=== PATIENT | female | born 1935 | race Caucasian/White ===

== ENCOUNTER 2019-08-03 10:07 | Outpatient (CLI) | payer MEDICARE ==
--- NOTE | 2019-08-03 11:17 | CT ---
EXAM: CT brain without contrast HISTORY: Dizziness and headache. COMMUNITY FUNDRAISER shunt. COMPARISON: 09/21/2012 TECHNIQUE: Multiple contiguous axial images were obtained and a CT of the brain without contrast. FINDINGS: There are scattered hypodensities in the subcortical and periventricular white matter consi stent with small vessel ischemic disease. A right-sided COMMUNITY FUNDRAISER shunt is seen with its tip in the lateral ventricle. Mild prominence the lateral ventricles is seen. This is is less prominent than on the prior exam. There is no evidence of intracranial hemorrhage or extra-axial fluid collection. The calvarium and overlying soft tissues are unremarkable. The visualized paranasal sinuses and masto id air cells are well aerated. IMPRESSION: 1. Small vessel ischemic disease 2. Mild prominence of the lateral ventricles. This prominence is less pronounced than on the prior ex am.
--- NOTE | 2019-08-03 11:21 | RAD ---
EXAM: Shuntogram. HISTORY: METAL MODEL BUILDER shunt COMPARISON: None FINDINGS: Images of the skull, neck, chest, and abdomen were performed. A METAL MODEL BUILDER shunt is seen and appear s intact. The tip of the shunt is seen in the right upper quadrant of the abdomen. IMPRESSION: No shunt abnormality identified.
== END 2019-08-03 10:08 | disposition home or self-care (01) ==
LOC: CT 10:07
PROVIDERS: ATTEND Surgery
DX: T85.618A Breakdown (mechanical) of other specified internal prosthetic devices, implants and grafts, initial encounter (principal); R42 Dizziness and giddiness; R51 Headache; I67.82 Cerebral ischemia
CPT/HCPCS: 70450; 75809

== ENCOUNTER 2019-08-06 12:53 | Inpatient (IN) | payer MEDICARE, OTHER ==
[~2019-08-06 12:53] MED LIST: Iopamidol-370 76% 500 ML 1 ML ONE
[2019-08-06 13:38] LABS: #Basophils 0.1 thou/uL (0.0-0.2); #Eosinphils 0.1 thou/uL (0.0-0.7); #Lymphocytes 1.2 thou/uL (1.20-3.40); #Monocytes 0.3 thou/uL (0.11-0.59); #Neutrophils 3.4 thou/uL (1.40-6.50); %Basophils 1.1 % (0.0-1.0); %Eosinophils 1.6 % (0.0-10.0); %Lymphocytes 24.5 % (21.0-51.0); %Monocytes 5.6 % (0.0-10.0); %Neutrophils 67.2 % (42.0-75.0); Hemoglobin 12.3 g/dL (12.0-16.0); Mean Corpuscular HGB CONC 32.6 g/dL (32.0-36.0); Mean Corpuscular Hemoglobin 30.3 pg (27.0-31.0); Mean Corpuscular Volume 92.7 fL (78.0-98.0); Platelet Count 206 thou/uL (130-400); RBC Distribution Width 12.9 % (11.5-14.5); Red Blood Cell (RBC) Count 4.08 mill/uL (4.20-5.40)
[2019-08-06 13:44] LABS: PTT 36.3 SEC (22.9-36.1)
[2019-08-06 14:03] LABS: ALT (SGPT) 8 U/L (8-55); AST (SGOT) 15 U/L (5-34); Albumin 4.2 g/dL (3.4-4.8); Alkaline Phosphatase 96 U/L (40-110); Anion Gap 11 mmol/L (10-20); BUN (Urea Nitrogen) 14 mg/dL (9.8-20.1); Bilirubin, Total 0.2 mg/dL (0.2-1.2); CRP (Inflammatory) Less than 0.50 mg/dL (= or < 0.5); Calc. Creatinine Clearance 0 mL/min (70-130); Calcium 9.1 mg/dL (7.8-10.44); Carbon Dioxide 27 mmol/L (23-31); Chloride 107 mmol/L (98-107); Estimated GFR-MDRD 51; Globulin 2.8 g/dL (2.4-3.5); Glucose 102 mg/dL (83-110); Potassium 3.7 mmol/L (3.5-5.1); Sodium 141 mmol/L (136-145)
[2019-08-06] MEDS ORDERED: Ondansetron PF 4 MG/2 ML Vial IVP PRN (15:07)
--- NOTE | 2019-08-06 15:22 | CT ---
CT OF THE CHEST, ABDOMEN AND PELVIS WITH AND WITHOUT IV CONTRAST INDICATION: 83-year-old female with shunt malfunction COMPARISON: Shunt series radiographs dated August 03, [address] the brain dated August 03, 2019 . FINDINGS: CHEST: Lungs: There is a 2 mm groundglass nodule within the right upper lobe on image 30 of series 4. There is mild pleural parenchymal scarring involving both lung apices. There is a 2 mm noncalcified pulmonary nodule right middle lobe. There is a calcified granuloma in the left upper lobe. No airspac e consolidation is evident. Pleural space: No effusion. Mediastinum: There are coronary arteries and thoracic aorta consultations. No pathologically enlarged lymph nodes are evident. There are calcified lymph nodes within the mediastinum and left hilar region. Axilla: No pathologically enlarged lymph nodes are evident. ABDOMEN: Liver: There is a 1.5 cm cyst within the right hepatic dome. Gallbladder: Normal appearing. Pancreas: Normal. Adrenal glands: Normal. Spleen: Calcified granuloma Kidneys and ureters: Normal. No hydronephrosis. Vasculature: Moderate vascular Lymph nodes:No lymphadenopathy. Free fluid in abdomen:No free fluid is evident. PELVIS: Small and large bowel: Normal Appendix:Normal Bladder: Decompressed with a Galloway catheter Rectal and perirectal soft tissues:Normal. Reproductive structures: Surgically absent Free fluid in pelvis: No free fluid is evident. Lymphadenopathy pelvis: No lymphadenopathy is evident. Osseous structures: There is diffuse osteopenia. There are percutaneous pins traversing a healed left femoral neck fracture. There is thoracolumbar scoliosis. There is an ACDF involving C7-T1. No acute fracture or subluxation demonstrated. There is scattered degenerative and osteoarthritic live es. Soft tissues:The shunt catheter traverses the anterior aspect of the right hemithorax without evidenc e of disruption. The catheter enters the peritoneal cavity within the right upper quadrant of the abdomen and projects cephalad over the right hepatic dome and terminates along the lateral aspect of the right hepatic lobe. No large CSF fluid collection is grossly evident. IMPRESSION: 1. Intact visualized portions of the ventriculoperitoneal catheter. 2. Chronic findings as above
[2019-08-06] MEDS ORDERED: hydrALAZINE 20 MG/ML VIAL SLOW IVP PRN ×2 (16:24→16:46)
--- NOTE | 2019-08-06 16:48 | PDOC.HHP ---
Hospitalist HPI - History of Present Illness Dizziness History of Present Illness: 83 YO F with a PMH of HTN, DJD and CASHIER GREETER shunt placed over 10 years ago who was admitted via the ER due to the recommendation of her NeuroSx. Pt had apparently been having dizziness over a month. Dizziness was worse in the mornings but occurred all day. There was no known relieving or worsening factors. Pt also began to run into the wall and had a few falls but no sequelae. She then began having nausea and vomiting which got worse. She denied fever, chills, diarrhea, chest pain, SOB, numbness, tingling or urinary symps. She then went to see the NeuroSx who felt she was having a malfunction of her CASHIER GREETER shunt and recommended her to be admitted. Hospitalist team was consulted to assist with med mgt. Currently, pt has no new complaints. Hospitalist ROS - Review of Systems Constitutional: denies: fever, chills, sweats, weakness, malaise, other Eyes: denies: pain, vision change, conjunctivae inflammation, eyelid inflammation, redness, other ENT: denies: ear pain, ear discharge, nose pain, nose discharge, nose congestion , mouth pain, mouth swelling, throat pain, throat swelling, other Respiratory: denies: cough, dry, shortness of breath, hemoptysis, SOB with excertion, pleuritic pain, sputum, wheezing, other Cardiovascular: denies: chest pain, palpitations, orthopnea, paroxysmal noc. dyspnea, edema, light headedness, other Gastrointestinal: reports: nausea, vomiting. denies: abdominal pain, diarrhea, constipation, melena, hematochezia, other Genitourinary: denies: dysuria, frequency, incontinence, hematuria, retention, other Musculoskeletal: denies: neck pain, shoulder pain, arm pain, back pain, hand pain, leg pain, foot pain, other Neurological: reports: weakness, incoordination, other (dizziness) Hospitalist History - Past Medical History Cardiac: reports: HTN - Exam General Appearance: NAD, awake alert Eye: PERRL, anicteric sclera ENT: normocephalic atraumatic, no oropharyngeal lesions, moist mucosa Neck: supple, symmetric, no JVD, no thyromegaly, no lymphadenopathy, no carotid bruit Heart: RRR, no murmur, no gallops, no rubs, normal peripheral pulses Respiratory: CTAB, no wheezes, no rales, no ronchi, normal chest expansion, no tachypnea, normal percussion Gastrointestinal: soft, non-tender, non-distended, normal bowel sounds, no palpable masses, no hepatomegaly, no splenomegaly, no bruit Extremities: no cyanosis, no clubbing, no edema Skin: normal turgor, no lesions, no rashes Neurological: cranial nerve grossly intact, no focal deficits, no new deficit, speech deficit Musculoskeletal: normal tone, normal strength, no muscle wasting Psychiatric: normal affect, normal behavior, A&O x 3 Hospitalist Results - Labs Result Diagrams: 08/06/19 13:21 08/06/19 13:21 Lab results: WBC 5.0 thou/uL (4.8-10.8) 08/06/19 13:21 Hgb 12.3 g/dL (12.0-16.0) 08/06/19 13:21 Hct 37.8 % (36.0-47.0) 08/06/19 13:21 MCV 92.7 fL (78.0-98.0) 08/06/19 13:21 Plt Count 206 thou/uL (130-400) 08/06/19 13:21 Neutrophils % 67.2 % (42.0-75.0) 08/06/19 13:21 ESR Westergren 11 mm/hr (Less than 30) 08/06/19 13:21 Sodium 141 mmol/L (136-145) 08/06/19 13:21 Potassium 3.7 mmol/L (3.5-5.1) 08/06/19 13:21 Chloride 107 mmol/L (98-107) 08/06/19 13:21 Carbon Dioxide 27 mmol/L (23-31) 08/06/19 13:21 BUN 14 mg/dL (9.8-20.1) 08/06/19 13:21 Creatinine 1.03 mg/dL (0.6-1.1) 08/06/19 13:21 Glucose 102 mg/dL (83-110) 08/06/19 13:21 Calcium 9.1 mg/dL (7.8-10.44) 08/06/19 13:21 Total Bilirubin 0.2 mg/dL (0.2-1.2) 08/06/19 13:21 AST 15 U/L (5-34) 08/06/19 13:21 ALT 8 U/L (8-55) 08/06/19 13:21 Alkaline Phosphatase 96 U/L (40-110) 08/06/19 13:21 C-Reactive Protein Less than 0.50 mg/dL (= or < 0.5) 08/06/19 13:21 Serum Total Protein 7.0 g/dL (6.0-8.3) 08/06/19 13:21 Albumin 4.2 g/dL (3.4-4.8) 08/06/19 13:21 - Radiology Interpretation CT scan - abdomen Status: report reviewed by me Hospitalist H&P A/P - Problem (1) Dizziness Code(s): R42 - DIZZINESS AND GIDDINESS Status: Acute Assessment and Plan: Likely due to CASHIER GREETER malfunction. Pt is scheduled for Sx tmr. Will f/u with Neuro Sx recs post op. (2) Nausea & vomiting Code(s): R11.2 - NAUSEA WITH VOMITING, UNSPECIFIED Status: Acute Qualifiers: Vomiting Intractability: non-intractable Assessment and Plan: Likely due to CASHIER GREETER malfunction. Pt is scheduled for Sx tmr which will likely relieve symps. Will give Zofran for now. (3) HTN (hypertension), benign Code(s): I10 - ESSENTIAL (PRIMARY) HYPERTENSION Status: Acute Assessment and Plan: Currently uncontrolled. Per Neuro Sx, pt's SBP should be <160mmhg. Will cont home meds. Give Hydralazine prn to keep SBP <160mmhg (4) Obstructed CASHIER GREETER shunt Status: Acute Assessment and Plan: Neuro Sx feels pt has CASHIER GREETER shunt malfunction. Pt is scheduled for Sx tmr.Will f/u with further Neuro Sx recs post op. - Plan Plan: PPX: Cont SCDS. Code Status:Full. Dispo: Cont current mgt. Thanks for this consult. We will follow.
[2019-08-06] MEDS: Zonisamide 100 MG CAP PO SCH (20:32)
[2019-08-06] MEDS: Gabapentin 400 MG CAP PO SCH (20:32)
[2019-08-06] MEDS: traMADol HCl 50 MG TAB PO PRN (22:03)
[2019-08-07 04:46] LABS: #Eosinphils 0.2 thou/uL (0.0-0.7); #Lymphocytes 1.5 thou/uL (1.20-3.40); #Monocytes 0.5 thou/uL (0.11-0.59); #Neutrophils 3.3 thou/uL (1.40-6.50); %Basophils 0.2 % (0.0-1.0); %Eosinophils 3.5 % (0.0-10.0); %Lymphocytes 26.9 % (21.0-51.0); %Monocytes 8.5 % (0.0-10.0); %Neutrophils 60.9 % (42.0-75.0); Hemoglobin 11.1 g/dL (12.0-16.0); Mean Corpuscular HGB CONC 32.8 g/dL (32.0-36.0); Mean Corpuscular Hemoglobin 30.4 pg (27.0-31.0); Mean Corpuscular Volume 92.7 fL (78.0-98.0); Mean Platelet Volume 7.2 fL (7.4-10.4); Platelet Count 227 thou/uL (130-400); RBC Distribution Width 12.9 % (11.5-14.5); Red Blood Cell (RBC) Count 3.66 mill/uL (4.20-5.40); White Blood Cell (WBC) Count 5.5 thou/uL (4.8-10.8)
[2019-08-07 04:58] LABS: Anion Gap 10 mmol/L (10-20); BUN (Urea Nitrogen) 11 mg/dL (9.8-20.1); Calc. Creatinine Clearance 0 mL/min (70-130); Carbon Dioxide 28 mmol/L (23-31); Chloride 108 mmol/L (98-107); Estimated GFR-MDRD 57; Glucose 91 mg/dL (83-110); Sodium 142 mmol/L (136-145)
[2019-08-07] MEDS: Acetaminophen 325 MG TAB PO PRN ×2 (07:55→17:16)
[2019-08-07] MEDS ORDERED: Famotidine/PF 20 mg/2ml Vial ONE (08:27)
[2019-08-07] MEDS ORDERED: Clindamycin/D5W 900 MG in Premix Bag 1 BAG IVPB SCH (08:30)
--- NOTE | 2019-08-07 08:39 | CT ---
PRELIMINARY REPORT/[facility]/EMERGENCY AFTER HOURS PROCEDURE: EXAM: CT Head Without Intravenous Contrast. CLINICAL HISTORY: Eval for hydrocephalus TECHNIQUE: Axial computed tomography images of the head/brain without intravenous contrast. COMPARISON: CT\SR - CT BRAIN WO CON - 08/03/2019 10:51 AM FEED WEIGHER FINDINGS: BRAIN: No acute intraparenchymal hemorrhage. No mass lesion. No CT evidence for acute territorial inf arct. No midline shift or extra-axial collection. Hypodensity of the white matter likely represents chronic microvascular ischemic disease. VENTRICLES: Prominence of the bilateral ventricles with a right-sided percutaneous catheter in place, unchanged in appearance compared to prior. ORBITS: The orbits are unremarkable. SINUSES AND MASTOIDS: The paranasal sinuses and mastoid air cells are clear. SOFT TISSUES: No significant facial or scalp soft tissue swelling evident. No radiopaque foreign body is seen. BONES: No acute skull fracture. IMPRESSION: Prominence of the bilateral ventricles with a right-sided percutaneous catheter in place, unchanged i n appearance compared to prior. ELECTRONICALLY SIGNED BY: Nevin Macias MD Aug 07, 2019 5:05:21 AM FEED WEIGHER This report is intended for review by the ordering physician only, in accordance of law. If you recei ve this report in error, please call [facility] at [phone]. FINAL REPORT EMERGENCY AFTER HOURS CT BRAIN WITHOUT CONTRAST: Date: 08/07/19 FINDINGS/IMPRESSION: I agree with the findings and impression given in the preliminary report per [facility] physici an. Stable exam.
[2019-08-07] MEDS ORDERED: Prevnar 13-Val Conj/PF 0.5 ML SYRINGE IM ONE (09:00)
[2019-08-07] MEDS ORDERED: Scopolamine 1.5 mg/72 hour Patch ONE (09:02)
[2019-08-07] MEDS ORDERED: Sodium Chloride 0.9% 10 ML ONE (09:31)
[2019-08-07] MEDS ORDERED: Rocuronium Bromide 10 MG/ML (10ML VIAL) ONE (09:34)
[2019-08-07] MEDS ORDERED: PROPOFOL 200 MG/20 ML VIAL ONE (09:34)
[2019-08-07] MEDS ORDERED: Ondansetron PF 4 MG/2 ML Vial ONE (09:34)
[2019-08-07] MEDS ORDERED: Metoclopramide HCl 10 MG/2 ML VIAL ONE (09:34)
[2019-08-07] MEDS ORDERED: Dexamethasone 20 MG/5 ML VIAL ONE (09:34)
[2019-08-07] MEDS ORDERED: Lidocaine 1% PF 5 ML VIAL ONE (09:34)
[2019-08-07] MEDS ORDERED: Glycopyrrolate 0.2 MG/ML 5 ML SYRINGE ONE (09:34)
[2019-08-07] MEDS ORDERED: Promethazine HCl 25 MG/ML VIAL IM PRN (10:25)
[2019-08-07] MEDS ORDERED: Ondansetron HCl/PF 4 MG/2 ML Vial IVP PRN (10:25)
[2019-08-07] MEDS ORDERED: Promethazine HCl 25 MG/ML VIAL SLOW IVP PRN (10:25)
[2019-08-07] MEDS ORDERED: Fentanyl 100 MCG/2 ML VIAL ONE (10:33)
[2019-08-07] MEDS: Lisinopril 10 MG TAB PO SCH (11:24)
[2019-08-07] MEDS: Meclizine HCl 25 MG TAB PO SCH (11:24)
[2019-08-07] MEDS: traMADol HCl 50 MG TAB PO PRN (12:37)
--- NOTE | 2019-08-07 13:45 | OP ---
DATE OF PROCEDURE: 08/07/2019 LOCATION: OR 11. SONAR WATCHSTANDER: Jordi Monge PA-C PREPROCEDURE DIAGNOSIS: Concern of shunt malfunction. POSTPROCEDURE DIAGNOSIS: Proof of shunt malfunction with valve dysfunction. PROCEDURE PERFORMED: Revision of right ventriculoperitoneal shunt. DESCRIPTION OF PROCEDURE: After informed consent was obtained from the patient, the patient was brought to the OR. Proper patient, pause, and identification were carried out. She was placed under excellent general endotracheal anesthesia. The right temporal region was identified. This area was sterilely cleansed, prepared, and draped and hair had been clipped in this area along with the neck, thorax, and abdomen region. We identified an incision that would allow for approach to the ventricular catheter, valve, and peritoneal catheter. The wound again was sterilely cleansed, prepared, and draped and then opened. We identified the peritoneal catheter. This was snipped and we tested with a manometer. The ease of flow into the peritoneal cavity, there was no evidence of obstruction. We then turned our attention to removal of the valve and there was robust flow from the ventricular catheter. As such, I surmise that the valve was the problem. The valve was then changed. It was set at 1.5 and secured to the proximal and distal catheters respectively and secured to the pericranium. Copious irrigation occurred throughout as did maximizing hemostasis. The wound was then closed in anatomic layers following sprinkling of vancomycin powder. Job ID: [id number]
[2019-08-07 14:16] VITALS: BMI 21.6
--- NOTE | 2019-08-07 19:04 | PDOC.HOSPP ---
- Subjective Encounter Date: 08/07/19 Encounter Time: 13:00 Subjective: pt up in bed complains of mild headache. - Objective Vital Signs & Weight: Vital Signs (12 hours) Temp Pulse BP Pulse Ox 08/07/19 17:00 98.6 F 08/07/19 16:00 98.6 F 08/07/19 12:00 97.6 F 08/07/19 11:46 84 168/68 H 08/07/19 11:24 166/73 H 08/07/19 11:10 97.6 F 08/07/19 08:00 100 Weight Admit Weight 130 lb 1.164 oz Weight 130 lb 1.164 oz Most Recent Monitor Data Heart Rate from ECG 97 NIBP 133/65 NIBP BP-Mean 87 Respiration from ECG 10 SpO2 93 I&O: 08/06/19 08/07/19 08/08/19 06:59 06:59 06:59 Intake Total 825 690 Output Total 1985 1207 Balance -1235 -635 Result Diagrams: 08/07/19 03:34 08/07/19 03:34 Hospitalist ROS - Review of Systems Respiratory: denies: cough, dry, shortness of breath, hemoptysis, SOB with excertion, pleuritic pain, sputum, wheezing, other Cardiovascular: denies: chest pain, palpitations, orthopnea, paroxysmal noc. dyspnea, edema, light headedness, other Genitourinary: denies: dysuria, frequency, incontinence, hematuria, retention, other - Medication Medications: Active Medications Generic Name Dose Route Start Last Admin Trade Name Freq PRN Reason Stop Dose Admin Acetaminophen 650 mg 08/06/19 15:06 08/07/19 17:16 Tylenol PO 650 mg Q6H PRN Administration Headache/Fever or Pain Gabapentin 400 mg 08/06/19 21:00 08/06/19 20:32 Neurontin PO 400 mg HS MARICARMEN Administration Hydralazine HCl 10 mg 08/06/19 16:46 08/07/19 11:46 Apresoline SLOW IVP 10 mg Q15MIN PRN Administration SBP GREATER THAN 160 Lisinopril 10 mg 08/07/19 09:00 08/07/19 11:24 Zestril PO 10 mg DAILY MARICARMEN Administration Meclizine HCl 25 mg 08/07/19 09:00 08/07/19 11:24 Antivert PO 25 mg DAILY MARICARMEN Administration Tramadol HCl 50 mg 08/06/19 16:38 08/07/19 12:37 Ultram PO 50 mg TIDPRN PRN Administration Moderate Pain (4-6) Zonisamide 100 mg 08/06/19 21:00 08/06/19 20:32 Zonisamide PO 100 mg HS MARICARMEN Administration - Exam Neck: negative: supple, symmetric, no JVD, no thyromegaly, no lymphadenopathy, no carotid bruit, JVD Heart: negative: RRR, no murmur, no gallops, no rubs, normal peripheral pulses, irregular, diminshed peripheral pulses, murmur present, II/IV, III/IV Respiratory: negative: CTAB, no wheezes, no rales, no ronchi, normal chest expansion, no tachypnea, normal percussion, rales, rhonchi, tachypneic, wheezes Hosp A/P (1) Dizziness Code(s): R42 - DIZZINESS AND GIDDINESS Status: Acute (2) HTN (hypertension), benign Code(s): I10 - ESSENTIAL (PRIMARY) HYPERTENSION Status: Acute (3) Obstructed PRECISION ASSEMBLER shunt Status: Acute - Plan pt's vitals stable. revision of PRECISION ASSEMBLER shunt. will follow along.
[2019-08-07] MEDS: Zonisamide 100 MG CAP PO SCH (20:03)
[2019-08-07] MEDS: Gabapentin 400 MG CAP PO SCH (20:03)
[2019-08-07] MEDS: Clindamycin/D5W 900 MG in Premix Bag 1 BAG IVPB SCH (21:02)
[2019-08-08] MEDS: Clindamycin/D5W 900 MG in Premix Bag 1 BAG IVPB SCH ×3 (04:56→22:32)
[2019-08-08] MEDS: Lisinopril 10 MG TAB PO SCH (08:07)
[2019-08-08] MEDS: Meclizine HCl 25 MG TAB PO SCH (08:07)
--- NOTE | 2019-08-08 09:08 | CT ---
PRELIMINARY REPORT/[facility]/EMERGENCY AFTER HOURS PROCEDURE: EXAM: CT Head Without Intravenous Contrast. CLINICAL HISTORY: S/p right occiptial shunt revision TECHNIQUE: Axial computed tomography images of the head/brain without intravenous contrast. COMPARISON: CT\SR - CT BRAIN WO CON - 08/07/2019 04:27 AM PICU NURSE FINDINGS: Status post interval revision of the right occipital shunts with postsurgical changes in the subcutan eous soft tissues overlying the right parietal bone and skin jo in place. Right shunt catheter with the tip in the right lateral ventricle. New focus of gas within the anterior horn of the left lateral ventricle, likely related to recent caden gurinder. No new intraparenchymal hemorrhage. Unchanged prominence of the ventricles, without change compared to prior IMPRESSION: Status post interval revision of the right occipital shunts with postsurgical changes in the subcutan eous soft tissues overlying the right parietal bone and skin jo in place. Right shunt catheter with the tip in the right lateral ventricle. Unchanged prominence of the ventricles. New focus of gas within the anterior horn of the left lateral ventricle, likely related to recent caden gurinder. No new intraparenchymal hemorrhage. ELECTRONICALLY SIGNED BY: Nevin Macias MD Aug 08, 2019 4:26:16 AM PICU NURSE This report is intended for review by the ordering physician only, in accordance of law. If you recei ve this report in error, please call [facility] at [phone]. FINAL REPORT EMERGENCY AFTER HOURS BRAIN CT WITHOUT IV CONTRAST: Date: 08/08/19 Time: 0402 hours COMPARISON: 08/07/19. IMPRESSION: Recent right shunt tube revision. Tiny amount of gas in the frontal horn of the left lateral ventricl e. No mass or bleed. This report is in agreement with the preliminary report. POS: [facility]
[2019-08-08] MEDS ORDERED: Prevnar 13-Val Conj/PF 0.5 ML SYRINGE IM ONE (11:30)
--- NOTE | 2019-08-08 19:36 | PRG ---
DATE OF SERVICE: 08/08/2019 Ms. Ralph is postoperative day #1 from TWISTING FRAME CHANGER shunt exploration or placement of TWISTING FRAME CHANGER valve. The patient is doing well today. She has some headache, though feels much better today than she did yesterday. Nausea and vomiting have been very limited, although she has not gotten out of bed and this is usually when this occurs. She follows commands equally in all 4 extremities. She is awake, alert, and oriented. Her head CT from today is stable compared to yesterday and her ventricular size has not changed. There is no evidence of any type of intracranial hemorrhage. At this time, the patient is stable for transition to the surgical floor and I would like q.2 hours neuro checks. We will follow up with her tomorrow, but she has plenty of help at home and her son is at bedside. Likely plan for discharge to early as tomorrow should the patient continue to do well from neurosurgical standpoint. Please call with any changes in the patient's neurologic status. Job ID: [id number]
[2019-08-08] MEDS: Gabapentin 400 MG CAP PO SCH (20:01)
[2019-08-08] MEDS: Zonisamide 100 MG CAP PO SCH (20:01)
[2019-08-09] MEDS: Acetaminophen 325 MG TAB PO PRN ×2 (01:38→08:45)
[2019-08-09] MEDS: Clindamycin/D5W 900 MG in Premix Bag 1 BAG IVPB SCH ×2 (05:40→15:59)
--- NOTE | 2019-08-09 07:25 | PDOC.HOSPP ---
- Subjective Encounter Date: 08/08/19 Encounter Time: 10:00 Subjective: pt has no dizziness today. - Objective Vital Signs & Weight: Vital Signs (12 hours) Temp Pulse Resp BP Pulse Ox 08/09/19 05:39 98.1 F 77 16 145/72 H 93 L 08/09/19 00:36 98.2 F 85 16 132/74 94 L 08/08/19 22:15 94 L 08/08/19 21:30 98.1 F 85 16 155/77 H 94 L 08/08/19 20:00 97.3 F L 96 Weight Admit Weight 130 lb 1.164 oz Weight 128 lb 15.527 oz Most Recent Monitor Data Heart Rate from ECG 64 NIBP 142/73 NIBP BP-Mean 84 Respiration from ECG 14 SpO2 94 I&O: 08/08/19 08/09/19 08/10/19 06:59 06:59 06:59 Intake Total 1155 1540 Output Total 1922 915 Balance -767 625 Result Diagrams: 08/07/19 03:34 08/07/19 03:34 Hospitalist ROS - Review of Systems Respiratory: denies: cough, dry, shortness of breath, hemoptysis, SOB with excertion, pleuritic pain, sputum, wheezing, other Cardiovascular: denies: chest pain, palpitations, orthopnea, paroxysmal noc. dyspnea, edema, light headedness, other Gastrointestinal: denies: nausea, vomiting, abdominal pain, diarrhea, constipation, melena, hematochezia, other - Medication Medications: Active Medications Generic Name Dose Route Start Last Admin Trade Name Freq PRN Reason Stop Dose Admin Acetaminophen 650 mg 08/06/19 15:06 08/09/19 01:38 Tylenol PO 650 mg Q6H PRN Administration Headache/Fever or Pain Gabapentin 400 mg 08/06/19 21:00 08/08/19 20:01 Neurontin PO 400 mg HS MARICARMEN Administration Hydralazine HCl 10 mg 08/06/19 16:46 08/07/19 11:46 Apresoline SLOW IVP 10 mg Q15MIN PRN Administration SBP GREATER THAN 160 Levofloxacin 750 mg/ Device 150 mls @ 100 mls/hr 08/08/19 11:00 08/08/19 10: 58 IVPB 150 mls 1100 MARICARMEN Administration Clindamycin Phosphate/Dextrose 50 mls @ 100 mls/hr 08/07/19 22:00 08/09/19 05 :40 900 mg/ Device IVPB 50 mls Q8HR MARICARMEN Administration Lisinopril 10 mg 08/07/19 09:00 08/08/19 08:07 Zestril PO 10 mg DAILY MARICARMEN Administration Meclizine HCl 25 mg 08/07/19 09:00 08/08/19 08:07 Antivert PO 25 mg DAILY MARICARMEN Administration Tramadol HCl 50 mg 08/06/19 16:38 08/07/19 12:37 Ultram PO 50 mg TIDPRN PRN Administration Moderate Pain (4-6) Zonisamide 100 mg 08/06/19 21:00 08/08/19 20:01 Zonisamide PO 100 mg HS MARICARMEN Administration - Exam Neck: negative: supple, symmetric, no JVD, no thyromegaly, no lymphadenopathy, no carotid bruit, JVD Heart: negative: RRR, no murmur, no gallops, no rubs, normal peripheral pulses, irregular, diminshed peripheral pulses, murmur present, II/IV, III/IV Respiratory: negative: CTAB, no wheezes, no rales, no ronchi, normal chest expansion, no tachypnea, normal percussion, rales, rhonchi, tachypneic, wheezes Hosp A/P (1) Dizziness Code(s): R42 - DIZZINESS AND GIDDINESS Status: Acute (2) HTN (hypertension), benign Code(s): I10 - ESSENTIAL (PRIMARY) HYPERTENSION Status: Acute (3) Obstructed SCRAP BALLER shunt Status: Acute - Plan pt's vitals stable. revision of SCRAP BALLER shunt. will follow along. 08/08 pt medically stable. vitals stable.
[2019-08-09 08:41] VITALS: BP 147/66; TEMP 98.6
[2019-08-09] MEDS: Lisinopril 10 MG TAB PO SCH (08:43)
[2019-08-09] MEDS: Meclizine HCl 25 MG TAB PO SCH (08:44)
--- NOTE | 2019-08-10 09:26 | PRG ---
DATE OF SERVICE: 08/09/2019 This is Jordi Monge PA-C dictating a report for Louie Mei MD. Ms. Ralph is postoperative day #2 having revision of shunt valve on the right. The patient was transferred to the surgical floor and is doing very well. She is sitting on her bedside commode. She has walked to the door in her room. She is asking to go home. She follows commands equally in all extremities. She has had little to no dizziness over the past 24 hours and no nausea or vomiting. Headache seems to be controlled today. We will plan for discharge later today. I would like to arrange some home health nursing to ensure that the patient is safe at home, although her son is very attentive and will help taking care of the patient. We will discharge her and I have asked that she remain off Plavix until she is 2 weeks postoperatively. We will follow up with a repeat noncontrast head CT and her wound check. Please call with any changes in patient's neurologic status. Otherwise, she is safe for discharge at this time. Job ID: [id number]
== END 2019-08-09 17:35 | disposition home or self-care (01) | DRG 32 ==
LOC: ERS 12:53 → CCU 14:39 → SJJU 08-08 21:53
PROVIDERS: ADMIT Emergency Medicine; ATTEND Hospitalist
PROC: 00W60JZ Revision of Synthetic Substitute in Cerebral Ventricle, Open Approach (ICD-10-PCS; principal; 2019-08-07)
DX: T85.09XA Other mechanical complication of ventricular intracranial (communicating) shunt, initial encounter (principal); G91.9 Hydrocephalus, unspecified; I10 Essential (primary) hypertension; Z88.0 Allergy status to penicillin; Z88.8 Allergy status to other drugs, medicaments and biological substances; E78.5 Hyperlipidemia, unspecified
CPT/HCPCS: 36415; 36430; 51702; 70450; 71250; 71260; 74177; 75809; 80048; 80053; 85025; 85610; 85652; 85730; 86140; 86850; 86900; 86901; 90471; 90670; G0009; J0360; J1100; J1956; J2001; J2405; J2704; J2765; J3010; J3370; J3490; J8597; P9035; Q9967; S0028

== ENCOUNTER 2019-08-24 08:20 | Outpatient (CLI) | payer MEDICARE, OTHER ==
--- NOTE | 2019-08-24 09:50 | CT ---
CT HEAD WITHOUT CONTRAST: INDICATIONS: Headache. Hydrocephalus. COMPARISON: 08/08/2019 FINDINGS: Re-demonstration of a right parietal approach ventriculostomy with tip terminating at the body of the right lateral ventricle. Size of ventricular system remains mildly enlarged, stable. Degree of periv entricular white matter hypoattenuation is grossly stable. No acute intracranial hemorrhage or midlin e shift. Right sided scalp jo remain. IMPRESSION: Mild ventriculomegaly and periventricular white matter hypoattenuation, stable appearing, with persis tence of an indwelling right parietal approach ventriculostomy. POS: [facility]
== END 2019-08-24 08:21 | disposition home or self-care (01) ==
LOC: TBSIIMAG 08:20 → EDBD 09:00
PROVIDERS: ATTEND Surgery
DX: G91.9 Hydrocephalus, unspecified (principal); R51 Headache; G93.89 Other specified disorders of brain; Z98.2 Presence of cerebrospinal fluid drainage device
CPT/HCPCS: 70450